=== PATIENT | female | born 1960 | race Two or more races ===

== ENCOUNTER 2021-11-11 17:37 | Emergency (ER) | payer BC ==
[~2021-11-11] VITALS: Ht 167.6 cm; Wt 84.4 kg
[2021-11-11] MEDS ORDERED: IV NS 0.9% 1,000 ML BAG IV ONE (18:00)
[2021-11-11] MEDS ORDERED: MECLIZINE HCL 12.5 MG TABLET PO ONE (18:00)
[2021-11-11] MEDS ORDERED: MECLIZINE HCL 12.5 MG TABLET ONE (18:08)
[2021-11-11] MEDS ORDERED: METOCLOPRAMIDE HCL 10 MG/2 ML VIAL ONE (18:12)
[2021-11-11] MEDS ORDERED: METOCLOPRAMIDE HCL 10 MG/2 ML VIAL IV ONE (18:30)
--- NOTE | 2021-11-11 18:32 | NUR ---
pt came in c/o vomiting multiple times and passed out. pt is a/o x3,connected to monitor.
--- NOTE | 2021-11-11 18:48 | NUR ---
APPROACHED PATIENT TO TAKE BACK FOR EXAMS AT 1840, PT REFUSED BOTH CXR AND CT HEAD WO.
[2021-11-11] MEDS ORDERED: IV NS 0.9% 1,000 ML IV ONE (20:00)
--- NOTE | 2021-11-11 20:00 | NUR ---
ADDENDUM: Intravenous End Time Documentation: Normal saline 1 liter (IV-WO) : start time: 1999 PM; end time: 2099 PM : IV site: L hand PIV # 18 Port # 1
[2021-11-11 20:11] LABS: BASOPHILS % (AUTO) 0.4 % (0.0-2.0); EOSINOPHILS % (AUTO) 0.4 % (0.0-6.0); HEMATOCRIT 40 % (33-45); HEMOGLOBIN 12.9 g/dL (11.5-14.8); LYMPHOCYTES # (AUTO) 1.1 K/uL (0.8-4.8); LYMPHOCYTES % (AUTO) 13.9 % (20.0-44.0); MEAN CORPUSCULAR HGB CONC 32 g/dl (31.0-36.0); MEAN CORPUSCULAR VOLUME 92 fL (82-100); MONOCYTES # (AUTO) 0.4 K/uL (0.1-1.30); MONOCYTES % (AUTO) 4.6 % (2.0-12.0); NEUTROPHILS # (AUTO) 6.3 K/uL (1.8-8.9); NEUTROPHILS % (AUTO) 80.7 % (43.0-81.0); PLATELET COUNT (AUTO) 57 K/uL (150-450); RED BLOOD CELL COUNT(AUTO) 4.33 MIL/uL (4.0-5.2); WHITE BLOOD COUNT (AUTO) 7.9 K/uL (4.3-11.0)
--- NOTE | 2021-11-11 20:45 | NUR ---
Dr. Coe aware pt has declined lab draw and would like to go home.
--- NOTE | 2021-11-11 21:17 | NUR ---
TROP 10
[2021-11-11] MEDS ORDERED: MECL-159 PO (21:28)
[2021-11-11] MEDS ORDERED: ONDA4TAB5 PO (21:28)
[2021-11-11 21:39] LABS: CALCIUM, SERUM 8.7 mg/dL (8.5-10.1); CARBON DIOXIDE 20 mmol/L (21-32); CHLORIDE 106 mmol/L (98-107); CREATININE 0.5 mg/dL (0.6-1.3); GLUCOSE 114 mg/dL (74-106); POTASSIUM 3.9 mmol/L (3.5-5.1); SODIUM SERUM 139 mmol/L (136-145); UREA NITROGEN, BLOOD 14 mg/dL (7-18)
[2021-11-11 22:43] LABS: LYMPHOCYTES % (MANUAL) 19 % (16-48); MONOCYTES % (MANUAL) 1 % (0-11.0); NEUTROPHILS % (MANUAL) 80 (42-76)
[2021-11-16 11:58] VITALS: BP 142/76
== END 2021-11-11 21:28 | disposition home or self-care (01) ==
LOC: ER 18:14
DX: R42 Dizziness and giddiness (principal); R11.2 Nausea with vomiting, unspecified; I10 Essential (primary) hypertension; E11.9 Type 2 diabetes mellitus without complications
CPT/HCPCS: 36415; 80048; 82962; 84484; 85007; 85025; 93005; 96361; 96374; 99284; J2765; J7030 ×2; J8597